=== PATIENT | male | born 1975 | race Caucasian/White ===

== ENCOUNTER 2021-02-21 10:31 | Emergency (ER) | payer BC, MEDICAID ==
[~2021-02-21] VITALS: Ht 175.3 cm; Wt 111.1 kg
[2021-02-21 11:37] VITALS: BP_SYST 138
[2021-02-21 14:00] VITALS: BP_SYST 138
--- NOTE | 2021-02-21 14:00 | NUR ---
PT WITH NO ANSWER. UNABLE TO LOCATE. LWBS
== END 2021-02-21 14:00 | disposition left against medical advice (07) ==
LOC: SED 10:31
DX: M54.2 Cervicalgia (principal); Z53.21 Procedure and treatment not carried out due to patient leaving prior to being seen by health care provider

== ENCOUNTER 2022-03-01 10:56 | Emergency (ER) | payer MEDICAID ==
[~2022-03-01] VITALS: Ht 175.3 cm; Wt 108.9 kg
[2022-03-01 10:56] VITALS: BP_SYST 148
--- NOTE | 2022-03-01 10:58 | NUR ---
BROUGHT BACK TO BED #7 AND TRIAGED, REPORT GIVEN TO ELKE
--- NOTE | 2022-03-01 11:05 | NUR ---
ER at bedside examining patient.
[2022-03-01] MEDS ORDERED: HYDR-3917 PO (11:09)
[2022-03-01 11:15] VITALS: BP_SYST 148
--- NOTE | 2022-03-01 11:15 | NUR ---
46YO M C/O CHRONIC LOW BACK PAIN FROM LUMBAR FUSION LAST AUG. PT IS ON PAIN MANAGEMENT AND IS TAKING [facility], BUT NEXT MD APPOINTMENT NOT UNTIL MAR 13. REPORTS 10/10 PAIN . IN ED, PT HYPERTENSIVE. ALL OTHER VS WNL. ERMD MADE AWARE OF PT STATUS.
--- NOTE | 2022-03-01 11:25 | NUR ---
A/OX4 VSS VERBALIZED UNDERSTANDING OF DC INSTRUCTIONS ALL QUESTIONS ANSWERED
== END 2022-03-01 11:25 | disposition home or self-care (01) ==
LOC: SED 10:56
DX: M54.50 Low back pain, unspecified (principal); G89.29 Other chronic pain; Z79.899 Other long term (current) drug therapy
CPT/HCPCS: 99281